=== PATIENT | female | born 1995 | race Caucasian/White ===

== ENCOUNTER 2022-03-01 14:18 | Emergency (ER) | payer OTHER, SELFPAY ==
[2022-03-01 14:28] VITALS: BP 122/72; PULSE 76; RESP 16; TEMP 36.6; O2SAT 100
--- NOTE | 2022-03-01 14:29 | ED.FEMALEGU ---
HPI - Female Genitourinary General Chief complaint: Urogenital-Female Stated complaint: std testing Time Seen by Provider: 03/01/22 14:29 Source: patient, RN notes reviewed and old records reviewed Mode of arrival: ambulatory Limitations: no limitations History of Present Illness HPI Narrative: 26-year-old female presents to the [facility] with concerns over exposure to herpes. Patient states that significant other was evaluated yesterday at another [facility] and told that he was having a herpes outbreak. Patient states that she has no signs or symptoms and requests to be tested. Denies any open sores. Denies any vaginal complaints at this time. Denies any concerns for other STDs such as chlamydia, gonorrhea or Trichomonas. States that her last menstrual period was a couple of days ago, just finished yesterday. Denies any abdominal pain or chest pain. No nausea vomiting [place]. No urinary symptoms. G5 Has a tubal ligation MD elicited complaint: possible STD Related Data Home Medications Medication Instructions Recorded Confirmed No Home Medications 03/01/22 03/01/22 Allergies Allergy/AdvReac Type Severity Reaction Status Date / Time diphenhydramine Allergy Severe Hives Verified 03/01/22 14:37 Review of Systems Review of Systems: All systems reviewed & are unremarkable except as noted in HPI and below Constitutional: Constitutional: Reports no additional constitutional complaints, Denies chills and Denies fatigue Eyes: Eyes: Reports no additional eye complaints ENT: Reports system reviewed and no additional complaints, except as documented Cardiovascular: Cardiovascular: Reports no additional cardiovascular complaints and Denies chest pain Respiratory: Respiratory: Reports no additional respiratory complaints, Denies cough, Denies dyspnea and Denies wheezing Gastrointestinal: Gastrointestinal: Reports no additional gastrointestinal complaints, Denies abdominal pain, Denies diarrhea, Denies nausea and Denies vomiting Genitourinary: Genitourinary: Reports no additional female genitourinary complaints, Reports hematuria, Denies nocturia, Denies genital pruritis, Denies genital lesions, Reports dysuria, Denies pelvic pain, Denies flank pain, Denies urinary urgency, Denies vaginal discharge, Denies vaginal dryness, Denies vaginal odor and Denies vaginal pruritus Musculoskeletal: Musculoskeletal: Reports no additional musculoskeletal complaints and Denies back pain Integumentary/Breasts: Skin/Breast: Reports system reviewed and no additional complaints, except as docu Neurologic: Reports system reviewed and no additional complaints, except as documented Psychiatric: Psychiatric: Reports no additional psychiatric complaints Allergic/Immunologic: Allergic/Immunologic: Reports no additional allergic/immunologic complaints PMFSH Comments At the time of my signature, I reviewed and agree with the nursing past medical, surgical, social, and family history. There is no relevant family history pertinent to the patient complaint. Exam Const: General: healthy appearing, no acute distress and alert Nutritional Appearance: well nourished Orientation/consciousness: patient oriented x3 Limitations: no limitations HENMT: Head: normal to inspection Ears: external ears normal Eyes: Conjunctivae: conjunctivae normal Pupils: Equal, round and reactive pupils present Neck: Neck: normal visual inspection, no lymphadenopathy and no meningeal signs Chest: Chest palpation & inspection: normal inspection of the chest and abnormal inspection of the chest Resp: Effort & Inspection: normal respiratory effort Auscultation: clear to auscultation bilaterally Cardio: Rate: regular rate Rhythm: regular rhythm GI: GI Palp: Yes Soft to palpation and No Tenderness to palpation present (GI) : Other: Patient declined exam, states she has no discharge, sores. Skin: General skin exam: normal color Rashes: no rashes Wounds: no wounds
== END 2022-03-01 14:47 | disposition home or self-care (01) ==
PROVIDERS: Emergency Provider Nurse Practitioner
DX: Z20.2 Contact with and (suspected) exposure to infections with a predominantly sexual mode of transmission (principal)
CPT/HCPCS: 99211; G0463

== ENCOUNTER 2022-06-02 17:26 | Emergency (ER) | payer OTHER, SELFPAY ==
[2022-06-02 17:45] VITALS: BP 120/66; PULSE 78; RESP 18; TEMP 36.3; O2SAT 98
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
[2022-06-02] MEDS: AMOXICILLIN/CLAVULANATE K 875-125 MG TAB 1 TABLET PO (18:55)
[2022-06-02] MEDS: ACETAMINOPHEN 500 MG TABLET 1000 MG PO (18:56)
[2022-06-02] MEDS: IBUPROFEN 400 MG TABLET 800 MG PO (18:56)
== END 2022-06-02 19:00 | disposition home or self-care (01) ==
PROVIDERS: Emergency Provider Emergency Medicine
DX: K08.89 Other specified disorders of teeth and supporting structures (principal); K02.9 Dental caries, unspecified
CPT/HCPCS: 99283; A9270

== ENCOUNTER 2022-07-14 19:07 | Emergency (ER) | payer OTHER, SELFPAY ==
[2022-07-14 19:15] VITALS: BP 153/103; PULSE 115; RESP 16; TEMP 37.4; O2SAT 99
--- NOTE | 2022-07-14 19:36 | ED.DENTAL ---
HPI - Dental/Oral General Chief complaint: Dental/Oral Stated complaint: tooth ache/ear pain Source: patient Mode of arrival: ambulatory Limitations: no limitations History of Present Illness HPI Narrative: 26-year-old female presents to [facility] with complaints of pain and swelling to her lower gums and pain to her left lower teeth -- # 18 and 19 --for the past 3 days. Patient reports that she was evaluated by her dentist approximately 1 month ago, was diagnosed with a gum infection but was not given antibiotic at that time. Patient reports that her symptoms became much worse the past 3 days. Patient reports that she was scheduled for an appointment with her dentist last week, but it was canceled per her dentist and rescheduled for August. Patient reports that she has been completing warm salt water gargles, taking [id number] Motrin, Tylenol and using sugar-free gum with little relief. Patient reports history of dental issues and is needing approximately 8 teeth pulled MD Complaint: tooth pain Location: Tooth # (18/19) Onset (ago): day(s) (3) Relieving factors: nothing Exacerbating factors: chewing, cold and drinking fluids Context: history of dental caries Treatment prior to arrival: oral analgesic Related Data Allergies Allergy/AdvReac Type Severity Reaction Status Date / Time diphenhydramine Allergy Severe Hives Verified 06/02/22 17:58 Review of Systems Constitutional: Constitutional: Denies chills, Denies fatigue, Denies fever(s) and Denies weakness ENT: Denies vertigo, Denies dizziness and Denies epistaxis Comments: dental pain and gum swelling Cardiovascular: Cardiovascular: Denies chest pain, Denies rapid heart rate and Denies radiating jaw, neck or arm pain Respiratory: Respiratory: Denies chest congestion, Denies cough and Denies dyspnea Gastrointestinal: Gastrointestinal: Denies abdominal pain, Denies diarrhea, Denies nausea and Denies vomiting Integumentary/Breasts: Skin/Breast: Denies rash PMFSH Past Medical History Medical History Polysubstance use disorder Surgical History Surgical History Hx of section Comments At time of signature, I agree with nursing past medical, surgical, social and family history. There is no relevant family history pertinent to the presenting complaint. Exam Const: General: healthy appearing Nutritional Appearance: well nourished Orientation/consciousness: patient oriented x3 Limitations: no limitations Other: pt tearful during examination HENMT: Mouth: Yes Normal oral and palatal mucosa present and Yes moist mucous membranes Teeth and gingiva: abnormal tooth and associated gingiva (Mild erythema and swelling noted to lower gums) Other: moderate tooth decay noted to tooth # 18 and 19 with avulsion noted to tooth # 19; diffuse dental caries noted. Neck: Neck: normal visual inspection Resp: Effort & Inspection: normal respiratory effort and not labored Auscultation: clear to auscultation bilaterally Cardio: Rate: regular rate Rhythm: regular rhythm Heart sounds: no murmurs Skin: General skin exam: normal color Rashes: no rashes Wounds: no wounds Neuro: General: patient oriented x3 Cranial nerves: Yes Nystagmus not present Speech: normal speech Gait exam (Neuro): Normal gait present Psych: Mental Status: mental status grossly normal Affect: normal affect Attitude: cooperative Course Course Level of Care: Express Care Visit Vital Signs Vital signs: Vital Signs Temperature 37.4 C 07/14/22 19:15 Pulse Rate 115 H 07/14/22 19:15 Respiratory Rate 16 07/14/22 19:15 Blood Pressure 153/103 H 07/14/22 19:15 Pulse Oximetry 99 07/14/22 19:15 Oxygen Delivery Room Air 07/14/22 19:15 Temperature 37.4 C 07/14/22 19:15 Pulse Rate 115 H 07/14/22 19:15 Respiratory Rate 16 07/14/22 19:15 Blood Pressure
--- NOTE | 2022-07-14 20:08 | PC.NURSE ---
requested to leave before bp recheck done.
== END 2022-07-14 19:47 | disposition home or self-care (01) ==
PROVIDERS: Emergency Provider Nurse Practitioner Family
DX: K08.89 Other specified disorders of teeth and supporting structures (principal)
CPT/HCPCS: 99213; G0463

== ENCOUNTER 2022-10-14 10:02 | Emergency (ER) | payer OTHER, SELFPAY ==
[2022-10-14 10:25] VITALS: BP 129/85; PULSE 80; RESP 16; TEMP 36.7; O2SAT 100
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
== END 2022-10-14 11:08 | disposition home or self-care (01) ==
PROVIDERS: Emergency Provider Nurse Practitioner Family
DX: S16.1XXA Strain of muscle, fascia and tendon at neck level, initial encounter (principal); K59.00 Constipation, unspecified; R14.3 Flatulence; R51.9 Headache, unspecified; V49.88XA Car occupant (driver) (passenger) injured in other specified transport accidents, initial encounter
CPT/HCPCS: 99213; G0463

== ENCOUNTER 2022-10-20 18:47 | Emergency (ER) | payer OTHER, SELFPAY ==
--- NOTE | 2022-10-20 18:50 | ED.ABDPAIN ---
HPI - Abdominal Pain General Chief Complaint: Unspecified Stated Complaint: gas Time Seen by Provider: 10/20/22 19:08 Source: patient and RN notes reviewed Mode of arrival: ambulatory Limitations: no limitations History of Present Illness HPI narrative: 27-year-old female presents with concern for foul-smelling flatulence. Reports she says it smells like sewage. She denies any bloating, pain, constipation, diarrhea. She does report some mucousy stools. She denies vomiting, reports intermittent nausea. Reports she has tried charcoal pills and Pepto-Bismol without relief. Reports she has been having normal frequency and consistency a bowel movement MD elicited complaint: other (Gas) Related Data Allergies Allergy/AdvReac Type Severity Reaction Status Date / Time diphenhydramine AdvReac Mild Hives Verified 10/20/22 18:50 Review of Systems Review of Systems: CONSTITUTIONAL: Denies malaise, chills, sweats, or fever. ENT: Denies rhinorrhea, congestion, sinus pain, otalgia or sore throat. CARDIOVASCULAR: Denies chest pain, palpitations, or edema. RESPIRATORY: Denies cough or dyspnea. GASTROINTESTINAL: Denies abdominal pain, nausea, vomiting, diarrhea, bloody, or mucous stools. Reports flatulence GENITOURINARY: Denies dysuria or hematuria. MUSCULOSKELETAL: Denies myalgia. NEUROLOGIC: Denies headache. All systems reviewed & are unremarkable except as noted in HPI and below PMFSH Past Medical History Medical History Polysubstance use disorder Surgical History Surgical History Hx of section Comments At time of signature, agree with nursing past medical, surgical, social and family history. There is no relevant family history pertinent to the presenting complaint Exam Narrative: GENERAL: Well-appearing, well-nourished, and in no acute distress. HEAD: Normocephalic, atraumatic. EYES: PERRLA, conjunctivae clear, and EOMI. ENT: Nares clear, turbinates pink, no rhinorrhea or epistaxis. Mucous membranes moist. Oropharynx without edema, erythema, or lesions. Tonsils not enlarged and without exudate. NECK: Supple. No lymphadenopathy CHEST: Speaks in full sentences. No respiratory distress. HEART: Regular rate and rhythm. ABDOMEN: Soft, flat, nondistended, nontender. No guarding, rebound tenderness, or rigidity. No pulsatile masses. Bowel sounds present in all four quadrants. No organomegaly. Negative Osuna?s sign. No periumbilical tenderness. No Supra public tenderness or distension. Good femoral pulses bilaterally. No hernia noted. No scars or surface trauma. SKIN: Warm, dry, no rash. NEURO: Alert and oriented x3. PSYCH: Normal mood and affect Course Course Emergency Course: Patient is aware of diagnosis, understands and agrees to treatment plan. Anticipatory guidance given. Patient agrees to follow-up as directed and is aware of reasons to seek care at the emergency department. Portions of this record may have been created with voice recognition software Level of Care: Express Care Visit Vital Signs Vital signs: Reviewed. MDM - Abdominal Pain MDM Narrative Medical decision making narrative: Exam findings show no acute concerns or changes; patient is non-toxic appearing and is in no distress. Patient is appropriate for outpatient treatment and follow-up. Critical Care Time Critical Care Time Critical Care Time: No Discharge Plan Discharge Clinical Impression: Flatulence Patient Disposition: Home, Self-Care Condition: Stable Instructions: Gas and Bloating (ED) Additional Instructions: 1) Please follow-up with your primary care doctor in the next 1-2 days. 2) If you have any urgent concerns please go to the ER. 3) Please take medications as prescribed 4) Please read and follow information included in discharge instructions. Having an established primary care provider is essential
[2022-10-20 18:53] VITALS: BP 126/73; PULSE 97; RESP 16; TEMP 36.7; O2SAT 99
== END 2022-10-20 19:25 | disposition home or self-care (01) ==
PROVIDERS: Emergency Provider Nurse Practitioner
DX: R14.3 Flatulence (principal)
CPT/HCPCS: 99213; G0463

== ENCOUNTER 2023-03-12 08:58 | Emergency (ER) | payer OTHER, SELFPAY ==
[2023-03-12 09:10] VITALS: BP 137/89; PULSE 112; RESP 18; TEMP 36.7; O2SAT 100
--- NOTE | 2023-03-12 09:17 | ED.ABDPAIN ---
HPI - Abdominal Pain General Chief Complaint: Unspecified Stated Complaint: uncontrollable gas for 6 months Time Seen by Provider: 03/12/23 09:06 History of Present Illness HPI narrative: 27-year-old female with no medical problems presents to the emergency room for evaluation of flatulence for over 6 months. Patient denies any abdominal pain, nausea vomiting or diarrhea. Denies any constipation. Patient is seen for this same complaint multiple times before. Patient states that she has tried changing her diet, and continues to experience the problem. No other complaints. Related Data Allergies Allergy/AdvReac Type Severity Reaction Status Date / Time diphenhydramine AdvReac Mild Hives Verified 03/12/23 09:16 Review of Systems Review of Systems: CONSTITUTIONAL: Denies fever, chills, or sweats. EYES: Denies visual changes, redness, or discharge. ENT: Denies rhinorrhea, congestion, sore throat, or otalgia. CARDIOVASCULAR: Denies chest pain, palpitations, or edema. RESPIRATORY: Denies cough or dyspnea. GASTROINTESTINAL: Denies abdominal pain, nausea, vomiting, or diarrhea. GENITOURINARY: Denies dysuria or hematuria. SKIN: Denies rash or itching. MUSCULOSKELETAL: Denies back pain, joint pain, or myalgia. NEUROLOGIC: Denies headache, numbness, dizziness, or weakness. PSYCHIATRIC: Denies anxiety or depression. [facility] Past Medical History Medical History Polysubstance use disorder Surgical History Surgical History Hx of section Exam Narrative: GENERAL: Well-appearing, well-nourished, no physical limitations, and in no acute distress. HEAD: Normocephalic, atraumatic. EYES: Conjunctivae normal, PERRLA and EOMI. CHEST: Clear to auscultation. No respiratory distress. No wheezes rales or rhonchi. No tenderness. HEART: Regular rate and rhythm. No murmur heard. Normal peripheral pulses. ABDOMEN: Soft, nontender, nondistended, normal active bowel sounds. BACK: No CVA tenderness EXTREMITIES: Normal range of motion. No edema. No clubbing or cyanosis SKIN: Warm, dry, no rash. No noted wounds NEURO: No focal deficits. Alert and oriented x3. MAEW. CN's II-XI intact bilaterally, normal gait PSYCH: Cooperative. Normal mood and affect. Course Vital Signs Vital signs: Vital Signs Temperature 36.7 C 03/12/23 09:10 Pulse Rate 112 H 03/12/23 09:10 Respiratory Rate 18 03/12/23 09:10 Blood Pressure 137/89 03/12/23 09:10 Pulse Oximetry 100 03/12/23 09:10 Oxygen Delivery Room Air 03/12/23 09:10 Temperature 36.7 C 03/12/23 09:10 Pulse Rate 112 H 03/12/23 09:10 Respiratory Rate 18 03/12/23 09:10 Blood Pressure 137/89 03/12/23 09:10 Pulse Oximetry 100 03/12/23 09:10 Oxygen Delivery Room Air 03/12/23 09:10 MDM - Abdominal Pain MDM Narrative Medical decision making narrative: Exam findings show no acute concerns. Patient is nontoxic appearing and in no distress. Will refer patient to GI for further evaluation. Discharge Plan Discharge Clinical Impression: Flatulence Patient Disposition: Home, Self-Care Condition: Stable Instructions: Antibiotic Form Prescriptions: New Probiotic 15 billion cell capsule, sprinkle 1 cap PO DAILY Qty: 30 0RF Rx Instructions: do not crush/chew/cut; swallow whole OR may open and sprinkle in cold drink/food No Action Probiotic 15 billion cell capsule 1 cap PO BID Qty: 30 0RF Follow-up/Referrals: PHYSICIAN,PAPER TWISTER [Primary Care Provider] - Gino Solis MD [Physician] - Time of Disposition: :22
== END 2023-03-12 09:30 | disposition home or self-care (01) ==
LOC: ANHED 09:21
PROVIDERS: Emergency Provider Nurse Practitioner Family
DX: R14.3 Flatulence (principal)
CPT/HCPCS: 99283

== ENCOUNTER 2023-04-03 12:19 | Outpatient (CLI) | payer OTHER, SELFPAY ==
[2023-04-03 12:56] LABS: Hematocrit 36.2 % (37.0-47.0); Hemoglobin 11.1 g/dL (12.0-15.0); Mean Corpuscular HGB Conc 30.7 g/dl (32-36); Mean Corpuscular Volume 84.8 fl (80-100); Mean Platelet Volume 10.6 fl (7.4-10.4); Platelet Count Result 276 k/mm3 (150-375); Red Blood Count 4.27 M/mm3 (4.2-5.4); Red Cell Distribution Width 14.8 % (11.5-14.5); White Blood Count 4.5 K/mm3 (4.5-10.0)
[2023-04-03 13:12] LABS: Alanine Aminotransferase 66 U/L (6-35); Albumin Level 4.3 g/dL (3.5-5.1); Alkaline Phosphatase 161 U/L (38-126); Anion Gap 7 mmol/L (8-16); Aspartate Amino Transferase 130 U/L (14-36); Bilirubin,Total 0.6 mg/dL (0.2-1.3); Blood Urea Nitrogen 8 mg/dL (7-17); CRP 0.8 mg/dL (<1.0); Calcium 8.5 mg/dL (8.4-10.2); Carbon Dioxide 31 mmol/L (22-30); Chloride 101 mmol/L (98-107); Estimated Glomerular Filt Rate > 60; Glucose 93 mg/dL (65-110); Potassium 3.5 mmol/L (3.4-5.0); Sodium 139 mmol/L (137-145)
[2023-04-03 13:29] LABS: Erythrocyte Sedimentation Rate 19 mm/hr (0-20)
[2023-04-03 13:42] LABS: Hepatitis B Surface Antigen Negative (Negative)
[2023-04-03 13:48] LABS: HAV RESULT Negative (Negative); Hepatitis B Core IgM Result Negative (Negative)
[2023-04-03 13:59] LABS: Hepatitis C Virus Antibody Negative (Negative)
[2023-04-03 17:31] LABS: Folic Acid 13.6 ng/mL (2.76->20)
[2023-04-10 08:10] LABS: Gliadin AB, IgG <1.0 U/mL (<15.0); TTG IGA AB <1.0 U/mL (<15.0)
== END 2023-04-03 12:20 | disposition home or self-care (01) ==
LOC: ANHLAB 12:20
PROVIDERS: Visit Provider Nurse Practitioner
DX: R19.5 Other fecal abnormalities (principal); K52.9 Noninfective gastroenteritis and colitis, unspecified; R14.0 Abdominal distension (gaseous); F11.20 Opioid dependence, uncomplicated; R10.813 Right lower quadrant abdominal tenderness
CPT/HCPCS: 36415; 80053; 80074; 82607; 82728; 82746; 84443; 85027; 85652; 86140; 86255; 86364

== ENCOUNTER 2024-03-22 00:39 | Day surgery (SDC) | payer OTHER, SELFPAY ==
[2024-03-17 12:24] VITALS: BMI 25.4
--- NOTE | 2024-03-22 11:55 | SUR.PREOP ---
Multiple attempts made to contact patient and patients family- no answer. Patient procedure canceled.
[2024-03-22 12:49] VITALS: BP 113/66; PULSE 75; RESP 18; TEMP 36.6; O2SAT 100
--- NOTE | 2024-03-22 13:00 | P.PNAN_ITS ---
Anes - Initial Pre Proc Eval Procedure: Operation Date: 03/22/24 12:30 Proposed Procedures p Colonoscopy - Gino Solis MD Date/Time: 03/22/24 13:00 Surgeon: Gino Solis MD Pre Op Diagnosis: Abd. Distension,colitis, gastroenteritis,RLQ tende Patient Data Age: 28 Gender: F Height: 1.6 m Weight: 65.7 kg Last Vital Signs Temp 36.6 C 03/22/24 12:49 Pulse 75 03/22/24 12:49 Resp 18 03/22/24 12:49 BP 113/66 03/22/24 12:49 Pulse Ox 100 03/22/24 12:49 O2 Del Method Room Air 03/22/24 12:49 Allergies Allergy/AdvReac Type Severity Reaction Status Date / Time diphenhydramine Allergy Intermediate Hives Verified 03/22/24 12:48 Home Medications Medication Instructions Recorded Confirmed Type gabapentin 100 mg capsule 100 mg PO DAILY 04/03/23 03/22/24 History Patient hx anesthesia problems: none Family hx anesthesia problems: none Results Review: All pre-operative results and documents have been reviewed as part of the pre- operative evaluation. [facility] Past Medical History Medical History Abdominal bloating Abnormal feces Alcohol use Change in bowel habits Chronic diarrhea Elevated liver enzymes Irritable bowel syndrome (IBS) Methadone use disorder, severe Normocytic anemia Polysubstance use disorder RLQ abdominal tenderness Surgical History Surgical History Hx of section Social History Social History Years smoked: 19 Smoking status: Current every day smoker Tobacco type: cigarettes Alcohol intake: current Substance use: former Substance use type: methamphetamine and other Other substance usage details: HAS NOT USED FOR A COUPLE MONTHS FOR METH. 4-5 MO. FOR FENTANYL Living arrangements: with friend(s) Spiritual care concerns: No Anes - Eval Final PreProcedure Day of Procedure 03/22/24 13:00 Patient weight: normal Heart: regular rate and rhythm Lungs: decreased breath sounds Airway: Mallampati scale class 1 Neurological: alert and oriented Last oral intake: >/= 8 hours ASA classification: III Emergent: no Anesthetic plan: proceed Anesthesia type and monitoring: general GIVS and standard monitoring Results Review: All pre-operative results and documents have been reviewed as part of the pre- operative evaluation. Informed Consent: The patient's anesthetic plan and its attendant risks and benefits were discussed with the patient/family/POA. Questions were solicited and answers provided to the satisfaction of the patient/family/POA.
[2024-03-22] MEDS: LACTATED RINGERS 1,000 ML 150 ML IV CONT (13:10)
--- NOTE | 2024-03-22 13:16 | PM.HPGS ---
History of Present Illness History of Present Illness Consent: Risks, benefits, and alternatives have been discussed and questions answered. Patient agrees to proceed with procedure. Chief complaint: Abd. Distension,colitis, gastroenteritis,RLQ tende Narrative: Tatyana Rutledge is a 28 year old female with bloating, also constipation alternating with loose stools, she has h/o ivda, never had colonoscopy Review of Systems Review of Systems: All systems reviewed & are unremarkable except as noted in HPI and below PMFSH Past Medical History Medical History (Updated 03/22/24 @ 13:18 by Gino Solis MD) Abdominal bloating Abnormal feces Alcohol use Change in bowel habits Chronic diarrhea Elevated liver enzymes Irritable bowel syndrome (IBS) Methadone use disorder, severe Normocytic anemia Polysubstance use disorder RLQ abdominal tenderness Surgical History Surgical History Hx of section Social History Social History Years smoked: 19 Smoking status: Current every day smoker Tobacco type: cigarettes Alcohol intake: current Substance use: former Substance use type: methamphetamine and other Other substance usage details: HAS NOT USED FOR A COUPLE MONTHS FOR METH. 4-5 MO. FOR FENTANYL Living arrangements: with friend(s) Spiritual care concerns: No Meds Home Medications and Allergies Home Medications Medication Instructions Recorded Confirmed Type gabapentin 100 mg capsule 100 mg PO DAILY 04/03/23 03/22/24 History Allergies Allergy/AdvReac Type Severity Reaction Status Date / Time diphenhydramine Allergy Intermediate Hives Verified 03/22/24 12:48 Vital Signs Vital Signs - 24 hr 03/22/24 12:49 Temperature 97.8 F Pulse Rate 75 Respiratory Rate 18 Blood Pressure 113/66 Pulse Oximetry 100 Oxygen Delivery Room Air Exam Const: General: comfortable and no acute distress HENMT: Face/Nose/Sinus: Normal nares present Eyes: General: appearance normal, both eyes and all related structures Neck: Neck: no JVD Resp: Auscultation: clear to auscultation bilaterally Cardio: Rate: regular rate Rhythm: regular rhythm GI: Inspection: non-distended GI Palp: Yes Soft to palpation Skin: General skin exam: normal color Neuro: General: gait normal Speech: normal speech Extrem: General: normal to inspection Psych: Mental Status: mental status grossly normal Assessment and Plan Assessment and plan (1) Change in bowel habits: Code(s): R19.4 - Change in bowel habit Status: Acute Assessment and Plan: colonoscopy (2) Abdominal bloating: Code(s): R14.0 - Abdominal distension (gaseous) Status: Acute (3) Polysubstance use disorder: Code(s): F19.90 - Other psychoactive substance use, unspecified, uncomplicated Status: Acute
[2024-03-22 13:33] VITALS: BP 95/59; PULSE 82; RESP 20; O2SAT 99
[2024-03-22 13:43] VITALS: BP 108/72; PULSE 80; RESP 17; O2SAT 100
[2024-03-22 13:53] VITALS: BP 119/77; PULSE 87; RESP 19; O2SAT 100
== END 2024-03-22 13:59 | disposition home or self-care (01) ==
PROVIDERS: Visit Provider Internal Medicine Gastroenterology
PROC: 0DJD8ZZ Inspection of Lower Intestinal Tract, Via Natural or Artificial Opening Endoscopic (ICD-10-PCS; CPT 45378; principal; 2024-03-22 12:30)
DX: R10.813 Right lower quadrant abdominal tenderness (principal); K58.9 Irritable bowel syndrome, unspecified; D64.9 Anemia, unspecified; F17.210 Nicotine dependence, cigarettes, uncomplicated; Z98.890 Other specified postprocedural states
CPT/HCPCS: 45380; 88305; J2704; J7120